=== PATIENT | male | born 1970 | race Caucasian/White ===

== ENCOUNTER 2019-04-29 12:43 | Emergency (ER) | payer OTHER, SELFPAY ==
[2019-04-29 12:56] VITALS: BP 140/96; PULSE 79; RESP 16; TEMP 36.6; O2SAT 100
--- NOTE | 2019-04-29 13:41 | ED.GENADULT ---
HPI - General Adult General Chief complaint: Urogenital-Male Stated complaint: UTI SYMPTOMS Time Seen by Provider: 04/29/19 13:41 Source: patient and RN notes reviewed Mode of arrival: ambulatory Limitations: no limitations History of Present Illness HPI narrative: This is a 49 years old male presents to the office with multiple complaints. Symptoms began a few weeks ago with feeling malaise, and lack of energy. He also reports lower back aches with intermittent growing spasm at times. For the last few day he also noticed urinary frequency and urgency. He also report urinary pain at time. This morning he noticed his urine has strong odor.Denies sick contact. Denies fever. Denies history of kidney stone. Denies any past medical history. He has not seen a doctor since January since his insurance drop his doctor.He would like a list of a primary care doctor to establish care.Denies history of diverticulitis. Denies family history of colon cancer. Related Data Home Medications Medication Instructions Recorded Confirmed No Home Medications 04/29/19 04/29/19 Allergies Allergy/AdvReac Type Severity Reaction Status Date / Time No Known Allergies Allergy Verified 04/29/19 12:55 Review of Systems Review of Systems: Narrative: CONSTITUTIONAL: Denies fever, chills, Unintentional weight loss ENT: Denies congestion, sore throat, otalgia. CARDIOVASCULAR: Denies chest pain, edema. RESPIRATORY: Denies dyspnea, wheezing, cough GASTROINTESTINAL: Denies abdominal pain, nausea, vomiting, diarrhea or bloody/dark color stools GENITOURINARY: Denies urinary symptoms or discharge or lesions SKIN: Denies rash MUSCULOSKELETAL: Reports lower back ache NEUROLOGIC: Denies lightheaded or syncope PMFSH Family History Family History (Updated 04/29/19 @ 15:00 by ALICJA Verdugo) Other BPH (benign prostatic hyperplasia) Diabetes mellitus Heart disease Social History Social History (Updated 04/29/19 @ 15:00 by ALICJA Verdugo) Smoking status: Never smoker Comments At time of signature, I agree with nursing past medical, surgical, social and family history. Exam Narrative: Exam Narrative: GENERAL: This is a well-nourished, well-developed patient, in no apparent distress. EYES: Sclera clear/white. Vision is grossly intact. EARS: External ears normal, auditory canals clear and without drainage, TMs normal without perforation. Hearing grossly intact. NOSE: External nose normal with no obvious nasal discharge, nares without redness, no rhinorrhea. THROAT: Mucous membranes moist, posterior pharynx clear. NECK: Neck supple, non-tender without lymphadenopathy, masses or thyromegaly. CARDIOVASCULAR: Regular rate and rhythm without murmurs, gallops, or rubs. RESPIRATORY: Clear to auscultation. Breath sounds equal bilaterally. No wheezes, rales, or rhonchi. GASTROINTESTINAL: Abdomen soft, non-tender, nondistended. Bowel sounds are active. No hepato-splenomegaly, or palpable masses. No guarding. SKIN: warm, intact with no suspicious lesions or rash, good texture and turgor. NEURO: awake, alert, and oriented to person, place and time. There were no obvious focal neurologic abnormalities. Steady gait EXTREMITIES: Normal range of motion. No edema. BACK: Nontender without deformity or crepitance. No flank tenderness. Evy Coma Scale Eye Opening: Spontaneous 4 [place] Coma Scale Motor: Obeys Commands 6 Evy Coma Scale Verbal: Oriented 5 Course Vital Signs Vital signs: Vital Signs Temperature 97.8 F 04/29/19 12:56 Pulse Rate 79 04/29/19 12:56 Respiratory Rate 16 04/29/19 12:56 Blood Pressure 140/96 H 04/29/19 12:56 Pulse Oximetry 100 04/29/19 12:56 Temperature 97.8 F 04/29/19 12:56 Pulse Rate 79 04/29/19 12:56 Respiratory Rate 16 04/29/19 12:56 Blood Pressure 140/96 H 04/29/19 12:56 Pulse Oximetry 100 04/29/19 12:56 Medical Decision Making [facility] Narrative Medical decision rema
== END 2019-04-29 14:42 | disposition home or self-care (01) ==
PROVIDERS: Emergency Provider Nurse Practitioner
DX: R81 Glycosuria (principal); R03.0 Elevated blood-pressure reading, without diagnosis of hypertension
CPT/HCPCS: 81003; 99202; G0463

== ENCOUNTER → 2020-06-07 02:40 | Outpatient (CLI) | payer OTHER, SELFPAY ==
[2020-06-07 20:23] LABS: SARS-CoV-2 RNA PCR Negative
== END ==
PROVIDERS: PCP Physician Assistant; Visit Provider Internal Medicine Gastroenterology
DX: Z01.812 Encounter for preprocedural laboratory examination (principal); Z20.822 Contact with and (suspected) exposure to COVID-19
CPT/HCPCS: C9803; U0003; U0005

== ENCOUNTER 2020-06-11 01:34 | Day surgery (SDC) | payer OTHER, SELFPAY ==
[2020-05-29 10:29] VITALS: BMI 27.1
[2020-06-11 08:52] VITALS: BP 133/95; PULSE 100; RESP 18; TEMP 36.6; O2SAT 100; BMI 27.8
[2020-06-11] MEDS: LACTATED RINGERS 1,000 ML 150 ML IV CONT (09:08)
--- NOTE | 2020-06-11 09:32 | PM.HPGS ---
History of Present Illness History of Present Illness Consent: Risks, benefits, and alternatives have been discussed and questions answered. Patient agrees to proceed with procedure. Chief complaint: neoplasm screening Narrative: Lazaro Hicks is a 50 year old male referred for colon cancer screening Review of Systems Review of Systems: All systems reviewed & are unremarkable except as noted in HPI and below PMFSH Family History Family History (Updated 04/29/19 @ 15:00 by ALICJA Verdugo) Other BPH (benign prostatic hyperplasia) Diabetes mellitus Heart disease Social History Social History Smoking status: Never smoker Alcohol intake: current Drinks per week: 2 Substance use type: does not use Living arrangements: with family Gender identity (if verbalized by the patient): Male Sexual Orientation (if Verbalized by the Patient): Straight or Heterosexual Spiritual care concerns: No Meds Home Medications and Allergies Home Medications Medication Instructions Recorded Confirmed Type amlodipine 5 mg PO HS 05/29/20 05/29/20 History Allergies Allergy/AdvReac Type Severity Reaction Status Date / Time No Known Allergies Allergy Verified 06/11/20 08:50 Vital Signs Vital Signs - 24 hr 06/11/20 08:52 Temperature 36.6 C Pulse Rate 100 Respiratory Rate 18 Blood Pressure 133/95 H Pulse Oximetry 100 Exam Const: General: alert Orientation/consciousness: patient oriented x3 Resp: Auscultation: clear to auscultation bilaterally Cardio: Rhythm: regular rhythm GI: GI Palp: Yes Soft to palpation and No Tenderness to palpation present (GI) Neuro: General: patient oriented x3 Assessment and Plan Assessment and plan (1) Colon cancer screening: Code(s): Z12.11 - Encounter for screening for malignant neoplasm of colon Status: Acute Assessment and Plan: Colonoscopy with possible biopsy or polypectomy or cautery or injection of substances.
--- NOTE | 2020-06-11 09:46 | WPDANESEPPF ---
Anes - Initial Pre Proc Eval Procedure: Operation Date: 06/11/20 10:00 Proposed Procedures p Screening Colonoscopy - Joe Lopez MD Date/Time: 06/11/20 09:46 Surgeon: Joe Lopez MD Pre Op Diagnosis: neoplasm screening Patient Data Age: 50 Gender: M Height: 6 ft Weight: 92.9 kg Last Vital Signs Temp 98 F 06/11/20 08:52 Pulse 100 06/11/20 08:52 Resp 18 06/11/20 08:52 BP 133/95 H 06/11/20 08:52 Pulse Ox 100 06/11/20 08:52 Allergies Allergy/AdvReac Type Severity Reaction Status Date / Time No Known Allergies Allergy Verified 06/11/20 08:50 Home Medications Medication Instructions Recorded Confirmed Type amlodipine 5 mg PO HS 05/29/20 05/29/20 History Patient hx anesthesia problems: none Family hx anesthesia problems: none PMFSH Family History Family History (Updated 04/29/19 @ 15:00 by ALICJA Verdugo) Other BPH (benign prostatic hyperplasia) Diabetes mellitus Heart disease Social History Social History Smoking status: Never smoker Alcohol intake: current Drinks per week: 2 Substance use type: does not use Living arrangements: with family Gender identity (if verbalized by the patient): Male Sexual Orientation (if Verbalized by the Patient): Straight or Heterosexual Spiritual care concerns: No Anes - Eval Final PreProcedure Day of Procedure 06/11/20 09:46 Patient weight: overweight Heart: regular rate and rhythm Lungs: clear to auscultation Airway: Mallampati scale Last oral intake: >/= 8 hours ASA classification: II Emergent: no Anesthetic plan: proceed Anesthesia type and monitoring: general GIVS and standard monitoring Informed Consent: The patient's anesthetic plan and its attendant risks and benefits were discussed with the patient/family/POA. Questions were solicited and answers provided to the satisfaction of the patient/family/POA.
[2020-06-11 10:08] VITALS: BP 121/86; PULSE 81; RESP 20; O2SAT 99
[2020-06-11 10:18] VITALS: BP 130/85; PULSE 78; RESP 21; O2SAT 99
[2020-06-11 10:28] VITALS: BP 123/89; PULSE 73; RESP 18; O2SAT 99
== END 2020-06-11 10:45 | disposition home or self-care (01) ==
PROVIDERS: PCP Physician Assistant; Visit Provider Internal Medicine Gastroenterology
PROC: 0DJD8ZZ Inspection of Lower Intestinal Tract, Via Natural or Artificial Opening Endoscopic (ICD-10-PCS; CPT 45378; principal; 2020-06-11 10:00)
DX: Z12.11 Encounter for screening for malignant neoplasm of colon (principal); K63.5 Polyp of colon
CPT/HCPCS: 45385; 88305; C9803; J2704; J7120; U0003; U0005

== ENCOUNTER 2020-07-31 14:00 | Outpatient (RCR) | payer OTHER, SELFPAY ==
[2020-07-01 11:11] VITALS: BMI 26.9
[2020-07-01 11:13] VITALS: BMI 26.9
== END 2020-09-24 14:50 | disposition home or self-care (01) ==
LOC: ANHDMC 14:00
PROVIDERS: PCP Physician Assistant; Visit Provider Physician Assistant
DX: E11.65 Type 2 diabetes mellitus with hyperglycemia (principal); Z71.3 Dietary counseling and surveillance; Z71.89 Other specified counseling
CPT/HCPCS: 97802; G0108

== ENCOUNTER 2020-10-27 09:23 | Outpatient (RCR) | payer OTHER, SELFPAY | END 2021-01-12 11:35 | disposition home or self-care (01) | LOC: ANHDMC 09:23 | PROVIDERS: PCP Physician Assistant; Visit Provider Physician Assistant | DX: E11.65 Type 2 diabetes mellitus with hyperglycemia (principal); Z71.89 Other specified counseling | CPT/HCPCS: G0108 ==